=== PATIENT | female | born 1960 | race Caucasian/White ===

== ENCOUNTER → 2018-09-29 | Outpatient (CLI) | payer OTHER ==
[~2018-09-29] MED LIST: ACET-76 PO; ALPR0.25 PO; BUDE10.2 INH; BUPR150T6 PO; CARV6.2512 PO; CHLO25TA PO; CLOP75TA PO; CYCL-259 PO; LISI-170 PO
== END | disposition home or self-care (01) ==
LOC: CVU 07:38 → MERGE 08:00
PROVIDERS: ATTEND Surgery
DX: I65.23 Occlusion and stenosis of bilateral carotid arteries (principal); R09.89 Other specified symptoms and signs involving the circulatory and respiratory systems
CPT/HCPCS: 93880

== ENCOUNTER 2018-12-24 09:33 | Emergency (ER) | payer OTHER ==
[~2018-12-24] VITALS: Ht 162.6 cm; Wt 92.4 kg
--- NOTE | 2018-12-24 09:50 | NUR ---
Pt ambulated to room, slow independent gait utilizing handrails, with ocassional rest periods. States that she has back pain, chronic urinary issues, and recently developed incontinence of bowel. Chart up for ERP review.
[2018-12-24] MEDS ORDERED: ONDANSETRON 2MG/ML, 2ML IVPush ONE (10:00)
[2018-12-24] MEDS ORDERED: SODIUM CHLORIDE FLUSH 10ML SYR IVF ONE (10:00)
[2018-12-24] MEDS ORDERED: MORPHINE SULFATE 4 MG/ML, 1ML IVPush PRN (10:00)
[2018-12-24] MEDS ORDERED: ONDANSETRON 2MG/ML, 2ML ONE (10:11)
[2018-12-24] MEDS ORDERED: MORPHINE SULFATE 4 MG/ML, 1ML ONE (10:11)
[2018-12-24 10:31] LABS: BASOPHILS # (AUTO) 0.02 x10^3/uL (0-0.1); BASOPHILS % (AUTO) 0 % (0-1); EOSINOPHILS # (AUTO) 0.08 x10^3/uL (0-0.4); EOSINOPHILS % (AUTO) 1 % (1-7); LYMPHOCYTES # (AUTO) 2.03 x10^3/uL (1-3.4); LYMPHOCYTES % (AUTO) 23 % (22-44); MD NO; MEAN CORPUSCULAR HEMOGLOBIN 31.7 pg (27.0-34.8); MEAN CORPUSCULAR HGB CONC 33.8 g/dL (32.4-35.8); MEAN CORPUSCULAR VOLUME 93.8 fL (80-100); MEAN PLATELET VOLUME 8.3 fL (7.4-10.4); MONOCYTES # (AUTO) 0.46 x10^3/uL (0.2-0.8); MONOCYTES % (AUTO) 5 % (2-9); NEUTROPHILS # (AUTO) 6.08 x10^3/uL (1.8-6.8); NEUTROPHILS % (AUTO) 70 % (42-75); PLATELET COUNT 279 x10^3/uL (130-400); RED BLOOD COUNT 5.32 x10^6/uL (3.82-5.3); RED CELL DISTRIBUTION WIDTH 14.6 % (9.6-15.2)
[2018-12-24 10:42] LABS: ALANINE AMINOTRANSFERASE 26 U/L (12-78); ALBUMIN 3.9 g/dL (3.4-5.0); ANION GAP 8 mmol/L (5-15); CHLORIDE 98 mmol/L (98-107); CREATININE 0.81 mg/dL (0.55-1.02)
[2018-12-24 10:44] LABS: ALKALINE PHOSPHATASE 70 U/L (45-117); BILIRUBIN,TOTAL 0.4 mg/dL (0.2-1.0); TOTAL PROTEIN 7.7 g/dL (6.4-8.2)
--- NOTE | 2018-12-24 10:50 | NUR ---
Pt noted to have smell of feces on breath. Updated on plan of care, denies any needs or concerns at this time.
--- NOTE | 2018-12-24 11:02 | NUR ---
Pt to CT.
[2018-12-24] MEDS ORDERED: OMNIPAQUE 350 MG/ML, 100ML BOTTLE ONE (11:19)
--- NOTE | 2018-12-24 11:34 | NUR ---
Pt returned from imaging.
[2018-12-24] MEDS ORDERED: SODIUM CHLORIDE 0.9% 1,000ML IVBOLUS ONE (13:00)
--- NOTE | 2018-12-24 13:23 | NUR ---
Pt up to restroom, attempting to provide urine sample at this time.
[2018-12-24 13:47] LABS: MICROSCOPIC NOT IND
[2018-12-24 13:54] LABS: CULTURE INDICATED? NO
[2018-12-24] MEDS ORDERED: LIDODERM 5% PATCH TD ONE ×2 (14:00→14:41)
[2018-12-24 14:47] VITALS: BP 133/70
== END 2018-12-24 14:49 | disposition home or self-care (01) ==
LOC: ED 11:22
DX: G89.29 Other chronic pain (principal); M54.16 Radiculopathy, lumbar region; R10.11 Right upper quadrant pain; R10.31 Right lower quadrant pain; R19.7 Diarrhea, unspecified; N39.3 Stress incontinence (female) (male); I10 Essential (primary) hypertension
CPT/HCPCS: 36415; 71045; 72131; 74177; 80053; 81003; 83690; 85025; 93005; 96361; 96374; 96375; 99284; J2270; J2405; J7030; Q9967

== ENCOUNTER 2018-12-29 17:53 | Inpatient (IN) | payer OTHER ==
[~2018-12-29] VITALS: Ht 162.6 cm; Wt 92.3 kg
[2018-12-31 15:20] VITALS: BP 98/61
== END 2018-12-31 18:28 | disposition home or self-care (01) | DRG 392 ==
LOC: ED 19:42 → EDIP 21:57 → 4WST 22:16
PROVIDERS: ADMIT Internal Medicine; ATTEND Internal Medicine
DX: A08.4 Viral intestinal infection, unspecified (principal); E87.1 Hypo-osmolality and hyponatremia; F17.210 Nicotine dependence, cigarettes, uncomplicated; J44.9 Chronic obstructive pulmonary disease, unspecified; F41.9 Anxiety disorder, unspecified; E87.8 Other disorders of electrolyte and fluid balance, not elsewhere classified; I73.9 Peripheral vascular disease, unspecified; I25.10 Atherosclerotic heart disease of native coronary artery without angina pectoris; I10 Essential (primary) hypertension; E86.0 Dehydration; Z95.0 Presence of cardiac pacemaker; Z95.5 Presence of coronary angioplasty implant and graft; Z90.710 Acquired absence of both cervix and uterus; Z90.89 Acquired absence of other organs; Z90.49 Acquired absence of other specified parts of digestive tract
CPT/HCPCS: 36415; J3490; J7613; J7626; 71045; 74177; 80048; 80053; 80061; 81003; 83036; 83605; 83690; 83735; 83930; 83935; 84300; 84439; 84443; 84484; 85025; 93005; 94640; 96374; 96375; G0378; J1644; J2405; J3480; Q0162; Q9967; J2060; J7030; J7040

== ENCOUNTER 2019-06-24 09:20 | Outpatient (CLI) | payer OTHER ==
[~2019-06-24 09:20] MED LIST changes: +ATOR40TA78 PO; +LOSA25TA25 PO
== END 2019-06-24 23:59 | disposition home or self-care (01) ==
LOC: CFH 09:20
PROVIDERS: ATTEND Internal Medicine
DX: R91.8 Other nonspecific abnormal finding of lung field (principal); I31.3 Pericardial effusion (noninflammatory); J44.9 Chronic obstructive pulmonary disease, unspecified; I70.0 Atherosclerosis of aorta; I25.10 Atherosclerotic heart disease of native coronary artery without angina pectoris; N64.89 Other specified disorders of breast
CPT/HCPCS: 71250

== ENCOUNTER → 2019-08-16 | Outpatient (CLI) | payer OTHER | END | disposition home or self-care (01) | LOC: CVU 06:56 | PROVIDERS: ATTEND Internal Medicine Cardiovascular Disease | DX: I08.0 Rheumatic disorders of both mitral and aortic valves (principal); I25.10 Atherosclerotic heart disease of native coronary artery without angina pectoris; I10 Essential (primary) hypertension | CPT/HCPCS: 93306 ==

== ENCOUNTER 2019-10-25 13:39 | Inpatient (IN) | payer OTHER ==
[~2019-10-25] VITALS: Ht 162.6 cm; Wt 95.0 kg
[2019-10-25 14:28] LABS: BASOPHILS # (AUTO) 0.05 x10^3/uL (0-0.1); BASOPHILS % (AUTO) 1 % (0-1); EOSINOPHILS # (AUTO) 0.11 x10^3/uL (0-0.4); EOSINOPHILS % (AUTO) 1 % (1-7); LYMPHOCYTES # (AUTO) 1.87 x10^3/uL (1-3.4); LYMPHOCYTES % (AUTO) 20 % (22-44); MD NO; MEAN CORPUSCULAR HEMOGLOBIN 31.1 pg (27.0-34.8); MEAN CORPUSCULAR VOLUME 91.4 fL (80-100); MEAN PLATELET VOLUME 8.6 fL (7.4-10.4); MONOCYTES # (AUTO) 0.54 x10^3/uL (0.2-0.8); MONOCYTES % (AUTO) 6 % (2-9); NEUTROPHILS # (AUTO) 6.83 x10^3/uL (1.8-6.8); NEUTROPHILS % (AUTO) 73 % (42-75); PLATELET COUNT 258 x10^3/uL (130-400); RED BLOOD COUNT 5.24 x10^6/uL (3.82-5.3); RED CELL DISTRIBUTION WIDTH 14.7 % (9.6-15.2)
--- NOTE | 2019-10-25 14:30 | NUR ---
PT STATES DIZZINESS AND NAUSEA X1 WEEK. STATES WAS SEEN BY DR. PATEL AND TOLD TO COME TO ER. PT STATES HX OF LOW K+. PT ON ALL MONITORS, EKG COMPLETED. PT DENIES AND CP OR SOB. WILL FOLLOW ORDERS.
[2019-10-25 14:36] LABS: ALANINE AMINOTRANSFERASE 35 U/L (12-78); ALBUMIN 3.8 g/dL (3.4-5.0); ANION GAP 9 mmol/L (5-15); CALCIUM 8.7 mg/dL (8.5-10.1); CHLORIDE 92 mmol/L (98-107); CREATININE 0.79 mg/dL (0.55-1.02)
[2019-10-25 14:40] LABS: ALKALINE PHOSPHATASE 100 U/L (45-117); BILIRUBIN,TOTAL 0.4 mg/dL (0.2-1.0); TOTAL PROTEIN 7.8 g/dL (6.4-8.2); TROPONIN I < 0.015 ng/mL (0.000-0.045)
[2019-10-25] MEDS ORDERED: SODIUM CHLORIDE 0.9% 1,000 ML IV ONE (14:47)
[2019-10-25] MEDS ORDERED: ONDANSETRON 2MG/ML, 2ML IVPush ONE ×2 (15:00)
[2019-10-25] MEDS ORDERED: ONDANSETRON 2MG/ML, 2ML ONE (15:09)
--- NOTE | 2019-10-25 15:13 | NUR ---
PT MEDICATED FOR NAUSEA PER ORDERS. PT REMAINS ON MONITORS, VSS. WILL BE [facility] ADMIT. CALL LIGHT IN REACH.
[2019-10-25] MEDS ORDERED: SODIUM CHLORIDE FLUSH 10ML SYR IVF PRN (15:30)
[2019-10-25] MEDS ORDERED: ACETAMINOPHEN 500 MG TABLET PO PRN (16:00)
[2019-10-25] MEDS ORDERED: POLYETHYLENE GLYCOL 17 GM PACKET PO PRN (16:00)
[2019-10-25] MEDS ORDERED: ONDANSETRON ODT 4 MG PO PRN (16:00)
[2019-10-25] MEDS ORDERED: DOCUSATE 100 MG CAPSULE PO PRN (16:00)
[2019-10-25] MEDS ORDERED: ONDANSETRON 2MG/ML, 2ML IVPush PRN (16:00)
[2019-10-25] MEDS ORDERED: BACLOFEN 10 MG TABLET PO PRN (16:00)
--- NOTE | 2019-10-25 16:01 | NUR ---
REPORT GIVEN TO YAHAIRA DOSS. PT OK TO TRANSFER TO FLOOR.
--- NOTE | 2019-10-25 16:56 | NUR ---
PT UP TO RR, STEADY GAIT. PT TRANSFERING TO FLOOR ROOM. HAS ALL OWN BELONGINGS UPON D/C.
[2019-10-25 17:27] VITALS: BP 110/66
[2019-10-25] MEDS ORDERED: SODIUM CHLORIDE 0.9% 1,000 ML IV SCH (17:30)
[2019-10-25] MEDS ORDERED: ENOXAPARIN 40 MG/0.4 ML SQ SCH (17:30)
[2019-10-25 20:06] VITALS: BP 100/59
[2019-10-25] MEDS: ATORVASTATIN 40 MG TABLET PO SCH ×2 (20:35→20:36)
[2019-10-25 21:40] LABS: ANION GAP 5 mmol/L (5-15); CALCIUM 8.4 mg/dL (8.5-10.1); CHLORIDE 96 mmol/L (98-107); CREATININE 0.76 mg/dL (0.55-1.02)
[2019-10-26 01:00] VITALS: BP 114/73
[2019-10-26 03:56] LABS: BASOPHILS # (AUTO) 0.02 x10^3/uL (0-0.1); BASOPHILS % (AUTO) 0 % (0-1); EOSINOPHILS # (AUTO) 0.09 x10^3/uL (0-0.4); EOSINOPHILS % (AUTO) 1 % (1-7); LYMPHOCYTES # (AUTO) 1.77 x10^3/uL (1-3.4); LYMPHOCYTES % (AUTO) 25 % (22-44); MD NO; MEAN CORPUSCULAR HEMOGLOBIN 30.6 pg (27.0-34.8); MEAN CORPUSCULAR HGB CONC 33.2 g/dL (32.4-35.8); MEAN PLATELET VOLUME 8.6 fL (7.4-10.4); MONOCYTES # (AUTO) 0.46 x10^3/uL (0.2-0.8); MONOCYTES % (AUTO) 7 % (2-9); NEUTROPHILS # (AUTO) 4.66 x10^3/uL (1.8-6.8); NEUTROPHILS % (AUTO) 67 % (42-75); PLATELET COUNT 212 x10^3/uL (130-400); RED BLOOD COUNT 4.87 x10^6/uL (3.82-5.3); RED CELL DISTRIBUTION WIDTH 15.1 % (9.6-15.2)
[2019-10-26 04:00] LABS: ANION GAP 8 mmol/L (5-15); CALCIUM 8.3 mg/dL (8.5-10.1); CHLORIDE 97 mmol/L (98-107); CREATININE 0.71 mg/dL (0.55-1.02)
[2019-10-26 06:58] VITALS: BP 98/63
[2019-10-26] MEDS: ALBUTEROL/IPRATROPIUM 2.5MG/0.5MG, 3 ML NPPB SCH ×2 (07:30→15:00)
[2019-10-26] MEDS ORDERED: LISINOPRIL 20 MG TABLET PO SCH (09:00)
[2019-10-26] MEDS ORDERED: CLOPIDOGREL 75 MG TABLET PO SCH (09:00)
[2019-10-26] MEDS ORDERED: BUDESONIDE 0.5 MG/2 ML INHA NPPB SCH (09:00)
[2019-10-26] MEDS ORDERED: CARVEDILOL 6.25 MG TABLET PO SCH (09:00)
[2019-10-26 09:14] VITALS: BP 124/83
[2019-10-26 10:20] LABS: ANION GAP 7 mmol/L (5-15); CALCIUM 8.7 mg/dL (8.5-10.1); CHLORIDE 96 mmol/L (98-107); CREATININE 0.74 mg/dL (0.55-1.02)
[2019-10-26 10:23] LABS: CHOL/HDL RATIO 4.1; CHOLESTEROL, TOTAL 162 mg/dL (140-239); HDL CHOL % 25 % (28-40); HDL CHOLESTEROL (DIRECT) 40 mg/dL (40-60); LDL CHOLESTEROL,CALCULATED 77 mg/dL (54-169); LDL/HDL RATIO 1.9 (0.5-3.0); TRIGLYCERIDES 227 mg/dL (50-200); VLDL CHOLESTEROL 45 mg/dL (0-25)
[2019-10-26 13:52] VITALS: BP 105/64
[2019-10-26 15:23] LABS: ANION GAP 7 mmol/L (5-15); CALCIUM 8.6 mg/dL (8.5-10.1); CHLORIDE 93 mmol/L (98-107); CREATININE 0.71 mg/dL (0.55-1.02)
[2019-10-26] MEDS ORDERED: ATOR-2 PO (15:41)
== END 2019-10-26 18:19 | disposition home or self-care (01) | DRG 641 ==
LOC: ED 14:16 → EDIP 15:28 → 4EST 17:00
PROVIDERS: ADMIT Hospitalist; ATTEND Family Medicine
DX: E87.1 Hypo-osmolality and hyponatremia (principal); I44.2 Atrioventricular block, complete; I10 Essential (primary) hypertension; I25.10 Atherosclerotic heart disease of native coronary artery without angina pectoris; I73.9 Peripheral vascular disease, unspecified; J44.9 Chronic obstructive pulmonary disease, unspecified; Z15.01 Genetic susceptibility to malignant neoplasm of breast; Z85.3 Personal history of malignant neoplasm of breast; Z87.891 Personal history of nicotine dependence; Z90.13 Acquired absence of bilateral breasts and nipples; Z90.710 Acquired absence of both cervix and uterus; Z92.21 Personal history of antineoplastic chemotherapy; Z95.0 Presence of cardiac pacemaker; Z95.5 Presence of coronary angioplasty implant and graft; Z95.820 Peripheral vascular angioplasty status with implants and grafts; Z88.8 Allergy status to other drugs, medicaments and biological substances
CPT/HCPCS: 36415; J7626; 71045; 80048; 80053; 80061; 83880; 83930; 83935; 84300; 84484; 85025; 93005; 93922; 93925; 94640; 96361; 96374; G0378; J1650; J2405; Q0162; J7030

== ENCOUNTER 2021-02-22 00:55 | Inpatient (IN) | payer BC ==
[~2021-02-22] VITALS: Ht 162.6 cm; Wt 94.5 kg
[~2021-02-22 00:55] MED LIST changes: +ATOR-2 PO; +BUPR150T22 PO; -BUPR150T6 PO; -CYCL-259 PO; +CYCL10TA2 PO
[2021-02-22] MEDS ORDERED: CEFTRIAXONE 1,000 MG in DEXTROSE 5% 50 ML IVPB ONE (01:00)
[2021-02-22] MEDS ORDERED: VANCOMYCIN PER PHARMACY MC PRN ×2 (01:00→08:30)
[2021-02-22] MEDS ORDERED: SODIUM CHLORIDE 0.9% 1,000ML IVBOLUS ONE ×2 (01:00→20:30)
--- NOTE | 2021-02-22 01:07 | NUR ---
IKE PATIENT REPORTS SHE HAS AN INFECTION OF LEFT MASECTOMY SITE THE SURGEON HAS BEEN MONITORING. PATIENT REPORTS THE SURGEON DRAINED SOME "THICK STUFF" FROM THAT SITE THIS AM. NOW EXPERIENCING FEVER, CHILLS, SOB.
[2021-02-22] MEDS ORDERED: VANCOMYCIN 2,300 MG in SODIUM CHLORIDE 0.9% 500 ML IV ONE (01:30)
[2021-02-22 01:48] LABS: BASOPHILS % (AUTO) 0 % (0-1); EOSINOPHILS % (AUTO) 0 % (1-7); LYMPHOCYTES % (AUTO) 3 % (22-44); MEAN CORPUSCULAR HEMOGLOBIN 30.5 pg (27.0-34.8); MEAN CORPUSCULAR HGB CONC 33.7 g/dL (32.4-35.8); MEAN PLATELET VOLUME 7.9 fL (7.4-10.4); MONOCYTES % (AUTO) 7 % (2-9); NEUTROPHILS % (AUTO) 89 % (42-75); PLATELET COUNT 211 x10^3/uL (130-400); RED BLOOD COUNT 4.78 x10^6/uL (3.82-5.3)
[2021-02-22 01:59] LABS: ALANINE AMINOTRANSFERASE 29 U/L (12-78); ALBUMIN 2.6 g/dL (3.4-5.0); ANION GAP 5 mmol/L (5-15); CALCIUM 8.4 mg/dL (8.5-10.1); CHLORIDE 102 mmol/L (98-107)
[2021-02-22 02:04] LABS: ALKALINE PHOSPHATASE 88 U/L (45-117); BILIRUBIN,TOTAL 1.3 mg/dL (0.2-1.0); CREATININE 0.68 mg/dL (0.55-1.02); TOTAL PROTEIN 7.1 g/dL (6.4-8.2); TROPONIN I 0.058 ng/mL (0.000-0.045)
--- NOTE | 2021-02-22 02:55 | NUR ---
PRECEPTOR RN: PT ASSISTED TO RESTROOM VIA WHEELCHAIR, MEDICATED PER MAR FOR ANXIETY. PT NOTED TO BE DIAPHORETIC, DAUGHTER AT BS, NAD, ASSISTED BACK TO [facility], RESTING COMFORTABLY, BED IN LOWEST, RAILS ENGAGED, CALL LIGHT ON LAP, WCTM.
[2021-02-22] MEDS ORDERED: ATOR40TA78 PO (03:02)
[2021-02-22] MEDS ORDERED: BUME0.5T2 PO (03:02)
[2021-02-22] MEDS ORDERED: CLON1TAB11 PO (03:02)
[2021-02-22] MEDS ORDERED: PROMETHAZINE 25 MG/ML, 1ML ONE (03:13)
[2021-02-22] MEDS ORDERED: PROMETHAZINE 25 MG/ML, 1ML IM ONE (03:30)
[2021-02-22] MEDS ORDERED: OMNIPAQUE 350 MG/ML, 100ML BOTTLE ONE (04:02)
--- NOTE | 2021-02-22 04:11 | NUR ---
FIRST ATTEMPT TO GIVE REPORT.
--- NOTE | 2021-02-22 04:29 | NUR ---
Pt to be admitted to MEDICAL, room 341. Report called to SUSAN.
[2021-02-22 04:48] VITALS: BP 124/68
[2021-02-22 07:50] VITALS: BP 119/57
[2021-02-22] MEDS ORDERED: LACTATED RINGERS 1,000 ML IV SCH (08:30)
[2021-02-22] MEDS ORDERED: OXYcodone IR 5MG TABLET PO PRN (08:30)
[2021-02-22] MEDS ORDERED: CYCLOBENZAPRINE 10 MG TABLET PO PRN (08:30)
[2021-02-22] MEDS ORDERED: ONDANSETRON ODT 4 MG PO PRN (08:30)
[2021-02-22] MEDS ORDERED: PHARMACOKINETIC MONITORING MC PRN (09:00)
[2021-02-22] MEDS ORDERED: PHARMACOKINETIC CONSULTATION MC ONE (09:00)
[2021-02-22] MEDS ORDERED: LISINOPRIL 20 MG TABLET PO SCH (09:00)
[2021-02-22] MEDS: SENNA/DOCUSATE TABLET PO SCH (09:08)
[2021-02-22] MEDS: ACETAMINOPHEN 325 MG TABLET PO PRN (09:08)
[2021-02-22] MEDS: HEPARIN 5,000 UNITS/ML, 1ML SQ SCH ×2 (09:08→16:42)
[2021-02-22 12:10] VITALS: BP 94/61
[2021-02-22] MEDS: CEFTRIAXONE 2,000 MG in DEXTROSE 5% 50 ML IV SCH (14:01)
[2021-02-22 19:43] VITALS: BP_SYST 85; BP_SYST 89; BP_DIAS 49; BP_DIAS 55
[2021-02-22] MEDS: VANCOMYCIN 1,800 MG in SODIUM CHLORIDE 0.9% 250 ML IV SCH (19:58)
[2021-02-22] MEDS: ATORVASTATIN 40 MG TABLET PO SCH (21:46)
[2021-02-23] VITALS (7 sets, daily range): BP systolic 79–115; BP diastolic 38–71
[2021-02-23] MEDS ORDERED: SODIUM CHLORIDE 0.9% 1,000ML IVBOLUS ONE (00:30)
[2021-02-23] MEDS: HEPARIN 5,000 UNITS/ML, 1ML SQ SCH ×3 (00:37→17:47)
[2021-02-23 00:48] LABS: ALANINE AMINOTRANSFERASE 40 U/L (12-78); ANION GAP 4 mmol/L (5-15); CALCIUM 7.6 mg/dL (8.5-10.1); CHLORIDE 105 mmol/L (98-107); CREATININE 0.82 mg/dL (0.55-1.02)
[2021-02-23 00:49] LABS: INTERNATIONAL NORMALIZED RATIO 0.96 (0.93-1.1); PROTHROMBIN TIME 10.3 Seconds (9.6-11.5)
[2021-02-23 00:52] LABS: ALKALINE PHOSPHATASE 89 U/L (45-117); BILIRUBIN,TOTAL 0.6 mg/dL (0.2-1.0); TOTAL PROTEIN 5.9 g/dL (6.4-8.2); TROPONIN I < 0.015 ng/mL (0.000-0.045)
[2021-02-23] MEDS: ONDANSETRON 2MG/ML, 2ML IVPush PRN (01:22)
[2021-02-23 07:22] LABS: BASOPHILS % (AUTO) 0 % (0-1); EOSINOPHILS % (AUTO) 1 % (1-7); LYMPHOCYTES % (AUTO) 12 % (22-44); MEAN CORPUSCULAR HEMOGLOBIN 31.2 pg (27.0-34.8); MEAN CORPUSCULAR HGB CONC 33.6 g/dL (32.4-35.8); MEAN PLATELET VOLUME 7.8 fL (7.4-10.4); MONOCYTES % (AUTO) 7 % (2-9); NEUTROPHILS % (AUTO) 80 % (42-75); PLATELET COUNT 197 x10^3/uL (130-400); RED BLOOD COUNT 3.97 x10^6/uL (3.82-5.3); RED CELL DISTRIBUTION WIDTH 14.8 % (9.6-15.2)
[2021-02-23 07:30] LABS: ANION GAP 4 mmol/L (5-15); CHLORIDE 108 mmol/L (98-107); CREATININE 0.61 mg/dL (0.55-1.02)
[2021-02-23 08:04] LABS: MICROSCOPIC INDICATED
[2021-02-23] MEDS: LISINOPRIL 20 MG TABLET PO SCH (08:35)
[2021-02-23] MEDS: SENNA/DOCUSATE TABLET PO SCH (08:35)
[2021-02-23] MEDS: CEFTRIAXONE 2,000 MG in DEXTROSE 5% 50 ML IV SCH (12:51)
[2021-02-23] MEDS: VANCOMYCIN 1,800 MG in SODIUM CHLORIDE 0.9% 250 ML IV SCH (13:51)
[2021-02-23] MEDS: ATORVASTATIN 40 MG TABLET PO SCH (19:51)
[2021-02-23] MEDS: ACETAMINOPHEN 325 MG TABLET PO PRN (22:31)
[2021-02-24 00:54] VITALS: BP 104/65
[2021-02-24] MEDS: HEPARIN 5,000 UNITS/ML, 1ML SQ SCH ×3 (01:01→15:57)
[2021-02-24 06:56] VITALS: BP 104/62
[2021-02-24] MEDS: SENNA/DOCUSATE TABLET PO SCH (08:10)
[2021-02-24] MEDS: LISINOPRIL 20 MG TABLET PO SCH (08:10)
[2021-02-24] MEDS: VANCOMYCIN 1,800 MG in SODIUM CHLORIDE 0.9% 250 ML IV SCH (08:11)
[2021-02-24 12:34] VITALS: BP 102/63
[2021-02-24] MEDS: CEFTRIAXONE 2,000 MG in DEXTROSE 5% 50 ML IV SCH (12:34)
[2021-02-24 20:00] VITALS: BP 124/75
[2021-02-24] MEDS: ACETAMINOPHEN 325 MG TABLET PO PRN (20:35)
[2021-02-24] MEDS: ATORVASTATIN 40 MG TABLET PO SCH (20:35)
[2021-02-25] MEDS: HEPARIN 5,000 UNITS/ML, 1ML SQ SCH ×3 (00:43→16:22)
[2021-02-25 02:00] VITALS: BP 121/77
[2021-02-25] MEDS: VANCOMYCIN 1,800 MG in SODIUM CHLORIDE 0.9% 250 ML IV SCH ×2 (02:17→14:10)
[2021-02-25] MEDS: ACETAMINOPHEN 325 MG TABLET PO PRN ×2 (07:43→16:22)
[2021-02-25] MEDS: SENNA/DOCUSATE TABLET PO SCH (07:44)
[2021-02-25] MEDS: LISINOPRIL 20 MG TABLET PO SCH (07:44)
[2021-02-25 07:50] VITALS: BP 119/75
[2021-02-25 14:18] VITALS: BP 113/68
[2021-02-25 20:04] VITALS: BP 139/69
[2021-02-25] MEDS: ATORVASTATIN 40 MG TABLET PO SCH (20:09)
[2021-02-26 00:42] VITALS: BP 129/65
[2021-02-26] MEDS: HEPARIN 5,000 UNITS/ML, 1ML SQ SCH ×3 (00:43→17:51)
[2021-02-26] MEDS: VANCOMYCIN 1,800 MG in SODIUM CHLORIDE 0.9% 250 ML IV SCH (02:05)
[2021-02-26 07:05] VITALS: BP 144/78
[2021-02-26] MEDS: SENNA/DOCUSATE TABLET PO SCH (08:26)
[2021-02-26] MEDS: LISINOPRIL 20 MG TABLET PO SCH (08:26)
[2021-02-26] MEDS: ACETAMINOPHEN 325 MG TABLET PO PRN ×2 (08:36→13:21)
[2021-02-26] MEDS: ERTAPENEM 1 GM in SODIUM CHLORIDE 0.9% 50 ML IV SCH (12:39)
[2021-02-26 13:55] VITALS: BP 138/85
[2021-02-26] MEDS ORDERED: SENN-211 PO (15:39)
[2021-02-26 19:30] VITALS: BP 135/75
[2021-02-26] MEDS: ATORVASTATIN 40 MG TABLET PO SCH (20:23)
[2021-02-27] MEDS: HEPARIN 5,000 UNITS/ML, 1ML SQ SCH ×2 (01:03→08:46)
[2021-02-27 01:05] VITALS: BP 132/82
[2021-02-27] MEDS: ONDANSETRON 2MG/ML, 2ML IVPush PRN (05:28)
[2021-02-27 07:04] VITALS: BP 126/76
[2021-02-27] MEDS: SENNA/DOCUSATE TABLET PO SCH (08:32)
[2021-02-27] MEDS: LISINOPRIL 20 MG TABLET PO SCH (08:46)
[2021-02-27] MEDS: ERTAPENEM 1 GM in SODIUM CHLORIDE 0.9% 50 ML IV SCH (11:43)
== END 2021-02-27 14:49 | disposition home health service (06) | DRG 871 ==
LOC: ED 02:43 → EDIP 03:31 → 3N 04:41 → 5SO 02-23 00:36 → 4NW 02-24 20:00
PROVIDERS: ADMIT Family Medicine; ATTEND Family Medicine
PROC: 0H9U00Z Drainage of Left Breast with Drainage Device, Open Approach (ICD-10-PCS; principal; 2021-02-22)
PROC: 02HV33Z Insertion of Infusion Device into Superior Vena Cava, Percutaneous Approach (ICD-10-PCS; 2021-02-26)
PROC: B518ZZA Fluoroscopy of Superior Vena Cava, Guidance (ICD-10-PCS; 2021-02-26)
PROC: B548ZZA Ultrasonography of Superior Vena Cava, Guidance (ICD-10-PCS; 2021-02-26)
DX: A41.9 Sepsis, unspecified organism (principal); J96.00 Acute respiratory failure, unspecified whether with hypoxia or hypercapnia; I21.A1 Myocardial infarction type 2; L02.213 Cutaneous abscess of chest wall; E87.1 Hypo-osmolality and hyponatremia; I31.3 Pericardial effusion (noninflammatory); L03.313 Cellulitis of chest wall; T81.41XA Infection following a procedure, superficial incisional surgical site, initial encounter; E66.9 Obesity, unspecified; E83.51 Hypocalcemia; F17.210 Nicotine dependence, cigarettes, uncomplicated; G47.33 Obstructive sleep apnea (adult) (pediatric); I11.0 Hypertensive heart disease with heart failure; I25.10 Atherosclerotic heart disease of native coronary artery without angina pectoris; I44.30 Unspecified atrioventricular block; I50.9 Heart failure, unspecified; I73.9 Peripheral vascular disease, unspecified; J44.9 Chronic obstructive pulmonary disease, unspecified; F32.9 Major depressive disorder, single episode, unspecified; I95.9 Hypotension, unspecified; R53.81 Other malaise; N61.1 Abscess of the breast and nipple; Z80.3 Family history of malignant neoplasm of breast; Z68.35 Body mass index [BMI] 35.0-35.9, adult; Z82.49 Family history of ischemic heart disease and other diseases of the circulatory system; Z90.13 Acquired absence of bilateral breasts and nipples; Z90.710 Acquired absence of both cervix and uterus; Z95.5 Presence of coronary angioplasty implant and graft
CPT/HCPCS: 36415; 36573; 36600; 71045; 71275; 80048; 80053; 80202; 81001; 82140; 82330; 82803; 83605; 83880; 84484; 85025; 85610; 85651; 85730; 86140; 87040; 87070; 87075; 87077; 87186; 87205; 93005; 99285; G0378; J0696; J1335; J1644; J2405; J2550; J3370; Q9967; C1751; J7030; J7040; J7050; J7120